=== PATIENT | male | born 1990 | race African-American/Black ===

== ENCOUNTER 2025-01-31 18:07 | Emergency (ER) | payer MEDICAID ==
[~2025-01-31] VITALS: Ht 188 cm; Wt 92.0 kg
[~2025-01-31 18:07] MED LIST: CLON0.1T; RISP1; TH200
[2025-01-31 18:32] VITALS: O2SAT 98
[2025-01-31] MEDS: ACETAMINOPHEN 500MG TABLET PO ONE (20:29)
[2025-01-31 21:05] LABS: CLARITY URINE CLEAR (CLEAR); COLOR URINE YELLOW (YELLOW); GLUCOSE URINE NEGATIVE (NEGATIVE); KETONES URINE NEGATIVE (NEGATIVE); LEUKOCYTE ESTERASE URINE NEGATIVE (NEGATIVE); NITRITE URINE NEGATIVE (NEGATIVE); OCCULT BLOOD URINE NEGATIVE (NEGATIVE); PH URINE 6.0 (4.5-8.0); PROTEIN URINE NEGATIVE (NEGATIVE); SPECIFIC GRAVITY URINE 1.018 (1.005-1.030); UROBILINOGEN URINE 1.0 E.U./dL (0.2-1.0)
[2025-01-31 21:45] LABS: INFLUENZA TYPE A Presumptive Negative (Pres. Neg.)
[2025-01-31 21:46] LABS: INFLUENZA TYPE B Presumptive Negative (Pres. Neg.); RESPIRATORY SYNCYTIAL VIRUS Not Detected (Not Detectd)
[2025-01-31 22:00] LABS: HEMATOCRIT. 46.0 % (42.0-52.0); HEMOGLOBIN. 15.4 g/dL (14.0-18.0); MEAN PLATELET VOLUME 9.0 fl (7.4-10.4); PLATELET 151 x1000/uL (130-400); RED BLOOD CELL COUNT 4.93 mill/uL (4.7-6.1); RED CELL DISTRIBUTION WIDTH 13.7 % (11.6-14.6)
[2025-01-31] MEDS: DEXAMETHASONE 4MG/ML 1ML VIAL IM ONE (22:06)
[2025-01-31 22:09] LABS: CREATININE 1.0 mg/dL (0.6-1.3); UREA NITROGEN BLOOD 15 mg/dL (9-23)
[2025-01-31 22:11] LABS: ASPARTATE AMINOTRANSFERASE 37 IU/L (<34); BILIRUBIN DIRECT 0.2 mg/dL (<=3.0); BILIRUBIN TOTAL 0.6 mg/dL (0.1-1.0); PROTEIN TOTAL 6.9 g/dL (6.0-8.3)
[2025-01-31] MEDS ORDERED: AZIT250T12 MT (22:11)
[2025-01-31 22:35] VITALS: BP 124/85; PULSE 90; RESP 14; TEMP 36.7; O2SAT 97
[2025-01-31 22:45] LABS: BAND% 20.0 % (1.0-6.0); LYMPHOCYTES % MANUAL 11.0 % (20.0-50.0); MONOCYTES % MANUAL 17.0 % (2.0-8.0); NEUTROPHILS % MANUAL 52.0 % (45.0-75.0); PLATELET ESTIMATE NORMAL
== END 2025-01-31 22:40 | disposition home or self-care (01) ==
LOC: ER 18:07
DX: J11.1 Influenza due to unidentified influenza virus with other respiratory manifestations (principal); Z79.899 Other long term (current) drug therapy
CPT/HCPCS: 99284; 71045; 80076; 80048; 81003; 87430; 83690; 85025; 87420; 87070; 87804 ×2; 36415; 96372; J1100

== ENCOUNTER 2025-05-31 22:13 | Emergency (ER) | payer OTHER ==
[~2025-05-31] VITALS: Ht 182.9 cm; Wt 106.0 kg
[~2025-05-31 22:13] MED LIST changes: +AZIT250T12 MT
[2025-05-31] MEDS: ZIPRASIDONE MESYLATE 20MG/VIAL IM ONE (23:00)
[2025-05-31 23:41] LABS: BASOPHILS % 0.6 % (0.0-2.0); EOSINOPHILS % 2.0 % (0.0-5.0); HEMATOCRIT. 43.6 % (42.0-52.0); HEMOGLOBIN. 14.2 g/dL (14.0-18.0); LYMPHOCYTES % 24.3 % (20.0-50.0); MEAN PLATELET VOLUME 9.4 fl (7.4-10.4); MONOCYTES % 10.3 % (2.0-8.0); NEUTROPHILS % 62.8 % (40.0-76.0); PLATELET 169 x1000/uL (130-400); RED BLOOD CELL COUNT 4.67 mill/uL (4.7-6.1); RED CELL DISTRIBUTION WIDTH 13.8 % (11.6-14.6)
[2025-05-31 23:45] VITALS: O2SAT 94
[2025-05-31 23:45] LABS: CLARITY URINE CLEAR (CLEAR); COLOR URINE YELLOW (YELLOW); GLUCOSE URINE NEGATIVE (NEGATIVE); KETONES URINE NEGATIVE (NEGATIVE); LEUKOCYTE ESTERASE URINE NEGATIVE (NEGATIVE); NITRITE URINE NEGATIVE (NEGATIVE); OCCULT BLOOD URINE NEGATIVE (NEGATIVE); PH URINE 7.0 (4.5-8.0); PROTEIN URINE NEGATIVE (NEGATIVE); SPECIFIC GRAVITY URINE 1.017 (1.005-1.030); UROBILINOGEN URINE 1.0 E.U./dL (0.2-1.0)
[2025-05-31 23:50] LABS: CREATININE 1.1 mg/dL (0.6-1.3); UREA NITROGEN BLOOD 13 mg/dL (9-23)
[2025-05-31 23:51] LABS: ETHANOL BLOOD < 10 mg/dL (<10)
[2025-05-31 23:55] LABS: *AMPHETAMINES SCREEN URINE NEGATIVE (NEGATIVE); *BARBITURATES SCREEN URINE NEGATIVE (NEGATIVE); *BENZODIAZEPINES SCREEN URINE NEGATIVE (NEGATIVE); *COCAINE SCREEN URINE NEGATIVE (NEGATIVE); CANNABINOID URINE SCREEN NEGATIVE (NEGATIVE); ECSTASY MDMA SCREEN URINE NEGATIVE (NEGATIVE); METHADONE URINE SCREEN NEGATIVE (NEGATIVE); OPIATES URINE SCREEN NEGATIVE (NEGATIVE); PHENCYCLIDINE URINE SCREEN NEGATIVE (NEGATIVE)
[2025-06-01] MEDS: ZIPRASIDONE MESYLATE 20MG/VIAL IM ONE ×2 (10:55→17:10)
[2025-06-02] MEDS: LORAZEPAM 2MG/ML UD SYRINGE IM NR (11:25)
[2025-06-02] MEDS: DIPHENHYDRAMINE 50MG/ML VIAL IM NR (11:25)
[2025-06-02] MEDS: HALOPERIDOL LACTATE 5MG/ML VIAL IM NR (11:45)
[2025-06-02] MEDS: RISPERIDONE 1MG TABLET PO SCH (21:43)
[2025-06-03] MEDS: LITHIUM CARBONATE 150 MG CAPSULE PO SCH (09:00)
[2025-06-03 12:00] VITALS: TEMP 36.8
[2025-06-03 15:31] VITALS: BP 138/69; PULSE 89; RESP 18; O2SAT 100
[2025-06-04 08:10] LABS: LITHIUM SERUM 0.3 mmol/L (0.5-1.2)
== END 2025-06-03 15:37 | disposition home or self-care (01) ==
LOC: ER 22:13
DX: R45.851 Suicidal ideations (principal); G40.909 Epilepsy, unspecified, not intractable, without status epilepticus; Q90.9 Down syndrome, unspecified; F20.9 Schizophrenia, unspecified; Z20.822 Contact with and (suspected) exposure to COVID-19
CPT/HCPCS: 80305; 80048; 81003; 80307; 80329; 80320; 85025; 36415; 93005; 96372 ×3; 99291; 80178 ×2; 87426; J3486 ×2; J1200; J1630; J2060; G0480